=== PATIENT | female | born 1995 | race Two or more races ===

== ENCOUNTER 2022-10-28 04:01 | Inpatient (IN) | payer BC ==
[2022-10-28] MEDS ORDERED: Lidocaine 1% 50 ML MDV INJECT PRN (04:59)
[2022-10-28] MEDS ORDERED: Tranexamic Acid 1,000 MG in Sodium Chloride 0.9% 100 ML IV PRN ×2 (04:59→18:46)
[2022-10-28] MEDS ORDERED: Sodium Chloride 0.9% 2.5 ML Syringe FLUSH PRN (04:59)
[2022-10-28] MEDS ORDERED: Methylergonovine 0.2 MG/1 ML Amp IM PRN (04:59)
[2022-10-28] MEDS ORDERED: Terbutaline 1 MG/ML SDV SUBCUT PRN (04:59)
[2022-10-28] MEDS ORDERED: Ondansetron 4 MG/2 ML SDV IVPUSH PRN (04:59)
[2022-10-28] MEDS ORDERED: Sodium Chloride 0.9% 20 ML SDV IV PRN (04:59)
[2022-10-28] MEDS ORDERED: Water For Irrigation,Sterile 1,000 ML Container IRR PRN (04:59)
[2022-10-28] MEDS ORDERED: Carboprost Tromethamine 250 MCG/1 mL Vial IM PRN (04:59)
[2022-10-28] MEDS ORDERED: Sodium Chloride 0.9% 10 ML Syringe FLUSH PRN (04:59)
[2022-10-28] MEDS ORDERED: Misoprostol 200 MCG Tab PO PRN (04:59)
[2022-10-28] MEDS ORDERED: Ampicillin 2 GM in Sodium Chloride 0.9% 100 ML IV ONE (05:00)
[2022-10-28] MEDS ORDERED: Misoprostol 25 MCG (1/4 of 100 MCG) Tab VAG PRN ×2 (05:00→09:00)
[2022-10-28] MEDS ORDERED: Oxytocin/0.9 % Sodium Chloride 30 UNIT/500 ML BAG IV SCH ×2 (05:00)
[2022-10-28] MEDS ORDERED: Nalbuphine HCl 10 MG/ 1ML Amp IVPUSH PRN (05:06)
[2022-10-28 05:30] LABS: HEMATOCRIT 34.1 % (36.0-46.0); MEAN CORPUSCULAR HEMOGLOBIN 24.7 pg (27.0-32.0); MEAN CORPUSCULAR HGB CONC 32.3 g/dL (31.0-37.0); MEAN CORPUSCULAR VOLUME 76.6 fL (80.0-98.0); RED BLOOD CELL COUNT 4.45 M/uL (4.30-5.90); WHITE BLOOD CELL COUNT,WBC 7.49 K/uL (4.0-11.0)
[2022-10-28] MEDS: Lactated Ringers 1,000 ML IV SCH ×2 (07:05→11:57)
[2022-10-28] MEDS: Ampicillin 1 GM in Sodium Chloride 0.9% 50 ML IV SCH ×2 (09:31→13:28)
[2022-10-28] MEDS ORDERED: Dexmedetomidine 200 MCG/2 ML SDV ONE (09:51)
[2022-10-28] MEDS ORDERED: Ropivacaine/PF 400 MG/200 ML PCA ONE (09:51)
[2022-10-28] MEDS ORDERED: Phenylephrine HCl 0.5 MG/5 ML AMP IVPUSH PRN (10:08)
[2022-10-28] MEDS ORDERED: ePHEDrine 50 MG/ML SDV IVPUSH PRN ×2 (10:08)
[2022-10-28] MEDS ORDERED: Ropivacaine HCl/PF 400 MG in Premix Bag 1 BAG EPIDUR SCH (10:15)
[2022-10-28] MEDS ORDERED: Acetaminophen 500 MG Tab PO PRN ×2 (18:46)
[2022-10-28] MEDS ORDERED: Bisacodyl 10 MG Supp RECTAL PRN (18:46)
[2022-10-28] MEDS ORDERED: Docusate Sodium 100 MG Cap PO PRN (18:46)
[2022-10-28] MEDS ORDERED: Ibuprofen 800 MG Tab PO PRN (18:46)
[2022-10-28] MEDS ORDERED: Ibuprofen 400 MG Tab PO PRN (18:46)
[2022-10-28] MEDS ORDERED: Lanolin 100% Cream 7 GM Tube TOP PRN (18:46)
[2022-10-28] MEDS ORDERED: Benzocaine/Menthol 20%-0.5% Spray 78 GM Cannister TOP PRN (18:46)
[2022-10-28] MEDS ORDERED: Witch Hazel Medicated Pads 40/Jar TOP PRN (18:46)
[2022-10-28 18:57] LABS: PH,UMBILICAL ARTERIAL 7.211 (7.18-7.38)
[2022-10-28 18:58] LABS: PH,UMBILICAL VENOUS 7.269 (7.25-7.45)
[2022-10-29 06:08] LABS: HEMATOCRIT 29.2 % (36.0-46.0); HEMOGLOBIN 9.3 g/dL (12.0-16.0)
[2022-10-29] MEDS: Prenatal Multivitamin with Calcium/Folic Acid/Iron Tab PO SCH (10:18)
[2022-10-30] MEDS: Prenatal Multivitamin with Calcium/Folic Acid/Iron Tab PO SCH (08:34)
== END 2022-10-30 19:42 | disposition home or self-care (01) | DRG 560 ==
LOC: MW.OBCHECK 04:01 → MW.OB 04:02 → MW.OBCHECK 14:59 → MW.OB 15:00 → OBSVTOIN 17:54 → MW.OB 17:54
PROVIDERS: ADMIT Obstetrics & Gynecology; ATTEND Obstetrics & Gynecology
PROC: 10E0XZZ Delivery of Products of Conception, External Approach (ICD-10-PCS; principal; 2022-10-28)
DX: O42.02 Full-term premature rupture of membranes, onset of labor within 24 hours of rupture (principal); O70.1 Second degree perineal laceration during delivery; O76 Abnormality in fetal heart rate and rhythm complicating labor and delivery; Z37.0 Single live birth; Z3A.39 39 weeks gestation of pregnancy
CPT/HCPCS: 01967; 36415; 59025; 59409; 82803; 84112; 85014; 85018; 85027; 86592; 86850; 86900; 86901; A9270-GY; J0290; J2405; J2590; J2795; J3490; J7120

== ENCOUNTER 2023-11-08 04:26 | Observation (INO) | payer BC, OTHER ==
[2023-11-08] MEDS ORDERED: Methylergonovine 0.2 MG/1 ML Amp IM PRN (05:40)
[2023-11-08] MEDS ORDERED: Tranexamic Acid IN NACL,ISO-OS 1,000 MG in Premix Bag 1 BAG IV PRN (05:40)
[2023-11-08] MEDS ORDERED: Carboprost Tromethamine 250 MCG/1 mL Vial IM PRN (05:40)
[2023-11-08] MEDS ORDERED: Water For Irrigation,Sterile 1,000 ML Container IRR PRN (05:40)
[2023-11-08] MEDS ORDERED: Butorphanol 2 MG/ML SDV IVPUSH PRN (05:40)
[2023-11-08] MEDS ORDERED: Sodium Chloride 0.9% 2.5 ML Syringe FLUSH PRN (05:40)
[2023-11-08] MEDS ORDERED: Sodium Chloride 0.9% 10 ML Syringe FLUSH PRN (05:40)
[2023-11-08] MEDS ORDERED: Misoprostol 200 MCG Tab PO PRN (05:40)
[2023-11-08] MEDS ORDERED: Lidocaine 1% 50 ML MDV INJECT PRN (05:40)
[2023-11-08] MEDS ORDERED: Sodium Chloride 0.9% 20 ML SDV IV PRN (05:40)
[2023-11-08] MEDS ORDERED: Oxytocin/0.9 % Sodium Chloride 30 UNIT/500 ML BAG IV SCH (05:45)
[2023-11-08] MEDS: Lactated Ringers 1,000 ML IV SCH (06:00)
[2023-11-08] MEDS: Ampicillin 2 GM in Sodium Chloride 0.9% 100 ML IV ONE (06:11)
[2023-11-08 06:27] LABS: HEMATOCRIT 37.5 % (37.0-47.0); HEMOGLOBIN 12.1 g/dL (12.0-16.0); MEAN CORPUSCULAR HEMOGLOBIN 24.6 pg (28.0-32.0); MEAN CORPUSCULAR HGB CONC 32.3 g/dL (32.0-36.0); MEAN CORPUSCULAR VOLUME 76.2 fL (83.0-99.0); MEAN PLATELET VOLUME 10.3 fL (9.4-12.3); NRBC ABSOLUTE 0.02 K/uL (0.00-0.02); NRBC PERCENT 0.2 /100WBC (0.0-0.2); PLATELET COUNT,PLT 233 K/uL (150-400); RED BLOOD CELL COUNT 4.92 M/uL (4.10-5.30); WHITE BLOOD CELL COUNT,WBC 10.18 K/uL (3.9-11.3)
[2023-11-08] MEDS ORDERED: ePHEDrine 50 MG/ML SDV IVPUSH PRN ×2 (07:12)
[2023-11-08] MEDS ORDERED: Phenylephrine HCl In 0.9% NaCl 1 MG/10 ML Syringe IVPUSH PRN (07:12)
[2023-11-08] MEDS ORDERED: dexmedeTOMIDine HCl 200 MCG/2 ML SDV EPIDUR SCH (07:15)
[2023-11-08] MEDS ORDERED: Ropivacaine HCl/PF 400 MG in Premix Bag 1 BAG EPIDUR SCH (07:15)
[2023-11-08] MEDS ORDERED: Betamethasone Acetate/Betamethasone Sod Phosphate 6 MG/1 ML MDV ONE (07:24)
[2023-11-08] MEDS: Betamethasone Acetate/Betamethasone Sod Phosphate 6 MG/1 ML MDV IM ONE (07:32)
[2023-11-08] MEDS: Ampicillin 1 GM in Sodium Chloride 0.9% 50 ML IV SCH (09:17)
[2023-11-09 03:52] LABS: GROUP B STREP BY PCR POSITIVE (NEGATIVE)
== END 2023-11-08 09:54 ==
LOC: MW.OB 04:26 → MW.OBCHECK 04:26 → MW.OB 05:40 → MW.OBCHECK 05:40
PROVIDERS: ADMIT Obstetrics & Gynecology; ATTEND Obstetrics & Gynecology
DX: O42.913 Preterm premature rupture of membranes, unspecified as to length of time between rupture and onset of labor, third trimester (principal); Z3A.29 29 weeks gestation of pregnancy; O99.283 Endocrine, nutritional and metabolic diseases complicating pregnancy, third trimester; E05.90 Thyrotoxicosis, unspecified without thyrotoxic crisis or storm; Z79.899 Other long term (current) drug therapy
CPT/HCPCS: 36415; 59025; 84112; 85027; 86592; 87653; J0290; J0702; J3490; J7120; 87081; 96365; 96366; G0378